=== PATIENT | female | born 1965 | race Hispanic/Latino ===

== ENCOUNTER 2019-01-25 20:30 | Emergency (ER) | payer BC ==
[2019-01-25] MEDS ORDERED: ASPIRIN 325 MG TABLET ONE (21:04)
[2019-01-25 21:34] LABS: BASOPHILS % (AUTO) 0.2 % (0.0-5.0); EOSINOPHILS % (AUTO) 0.1 % (0.0-8.0); HEMATOCRIT 40.5 % (36-48); MEAN CORPUSCULAR HEMOGLOBIN 31.1 pg (27.0-33.0); MEAN CORPUSCULAR HGB CONC 33.2 g/dL (32.0-36.0); MEAN CORPUSCULAR VOLUME 93.8 fL (79-99); MONOCYTES % (AUTO) 7.6 % (3.0-13.0); NEUTROPHILS % (AUTO) 82.1 % (40.0-77.0); PLATELET COUNT (AUTO) 247 K/uL (130-400); RED BLOOD CELL COUNT(AUTO) 4.32 MIL/uL (4.00-5.50); RED CELL DISTRIBUTION WIDTH 13.1 % (11.0-15.5); WHITE BLOOD COUNT (AUTO) 15.5 K/uL (4.8-10.8)
[2019-01-25 21:43] LABS: APPEARANCE,URINE SL CLOUDY (CLEAR); BILIRUBIN,URINE NEGATIVE (NEGATIVE); COLOR,URINE YELLOW (YELLOW); GLUCOSE, URINE (UA) NEGATIVE (NEGATIVE); KETONES,URINE 5 mg/dL (NEGATIVE); LEUKOCYTE ESTERASE ,URINE NEGATIVE (NEGATIVE); NITRATE,URINE NEGATIVE (NEGATIVE); OCCULT BLOOD,URINE NEGATIVE (NEGATIVE); PROTEIN,URINE NEGATIVE (NEGATIVE); UROBILINOGEN,URINE 0.2 mg/dL (0.2-1.0)
[2019-01-25 21:52] LABS: AMPHET/METH SCREEN,URINE NEGATIVE (NEGATIVE); BARBITURATE SCREEN, URINE NEGATIVE (NEGATIVE); BENZODIAZEPINES SCREEN,URINE NEGATIVE (NEGATIVE); CANNABINOID SCREEN,URINE NEGATIVE (NEGATIVE); COCAINE SCREEN,URINE NEGATIVE (NEGATIVE); OPIATE SCREEN,URINE NEGATIVE (NEGATIVE); PHENCYCLIDINE SCREEN,URINE NEGATIVE (NEGATIVE)
[2019-01-25 21:59] LABS: CREATININE 0.7 mg/dL (0.5-1.5); POTASSIUM 4.4 mmol/L (3.5-5.1)
[2019-01-25 22:11] LABS: B-TYPE NATRIURETIC PEPTIDE 34 pg/mL (0-100)
[2019-01-25 22:13] LABS: BILIRUBIN,TOTAL 0.3 mg/dL (0.2-1.0); THYROID STIMULATING HORMONE 0.78 uIU/mL (0.36-3.74); TOTAL PROTEIN, SERUM 6.4 g/dL (6.0-8.3)
[2019-01-25 22:19] LABS: BACTERIA,URINE Few /HPF (None Seen); RBC,URINE None Seen /HPF (0-1)
[2019-01-25 22:20] LABS: AMORPHOUS SEDIMENT,UR Few /LPF (None Seen)
[2019-01-25] MEDS ORDERED: AZITHROMYCIN 250 MG TABLET PO ONE (23:36)
== END 2019-01-26 | disposition home or self-care (01) ==
LOC: EDH 20:30
DX: J20.9 Acute bronchitis, unspecified (principal); I10 Essential (primary) hypertension; F41.9 Anxiety disorder, unspecified; M81.0 Age-related osteoporosis without current pathological fracture; Z90.710 Acquired absence of both cervix and uterus
CPT/HCPCS: 36415; 71045; 80053; 80305; 81001; 82550; 83880; 84443; 84484; 85025; 93005

== ENCOUNTER 2023-07-21 10:50 | Emergency (ER) | payer BC ==
[~2023-07-21] VITALS: Ht 157.5 cm; Wt 80.7 kg
[2023-07-21 12:03] LABS: BASOPHILS # (AUTO) 0.02 K/uL (0.00-0.20); BASOPHILS % (AUTO) 0.2 % (0.0-5.0); EOSINOPHILS # (AUTO) 0.04 K/uL (0.00-0.70); EOSINOPHILS % (AUTO) 0.4 % (0.0-8.0); HEMATOCRIT 39.4 % (36-48); IMMATURE GRANULOCYTE ABSOLUTE 0.02 K/uL (0-1); LYMPHOCYTES # (AUTO) 2.2 K/uL (1.0-4.8); LYMPHOCYTES % (AUTO) 23.5 % (21.0-51.0); MEAN CORPUSCULAR HEMOGLOBIN 30.5 pg (27.0-33.0); MEAN CORPUSCULAR HGB CONC 33.2 g/dL (32.0-36.0); MEAN CORPUSCULAR VOLUME 91.6 fL (79-99); MONOCYTES # (AUTO) 0.5 K/uL (0.1-1.0); MONOCYTES % (AUTO) 5.1 % (3.0-13.0); NEUTROPHILS # (AUTO) 6.5 K/uL (1.8-7.7); NEUTROPHILS % (AUTO) 70.6 % (40.0-77.0); PLATELET COUNT (AUTO) 259 K/uL (130-400); RED CELL DISTRIBUTION WIDTH 12.2 % (11.0-15.5); WHITE BLOOD COUNT (AUTO) 9.2 K/uL (4.8-10.8)
[2023-07-21 12:04] LABS: APPEARANCE,URINE CLEAR (CLEAR); BILIRUBIN,URINE NEGATIVE (NEGATIVE); COLOR,URINE DARK-YELLOW (YELLOW); GLUCOSE, URINE (UA) NEGATIVE (NEGATIVE); KETONES,URINE NEGATIVE (NEGATIVE); LEUKOCYTE ESTERASE ,URINE 500 Leu/uL (NEGATIVE); NITRATE,URINE NEGATIVE (NEGATIVE); PROTEIN,URINE NEGATIVE (NEGATIVE); UROBILINOGEN,URINE 0.2 mg/dL (0.2-1.0)
[2023-07-21 12:06] LABS: ADD UA MICROSCOPIC YES
[2023-07-21 12:09] LABS: BACTERIA,URINE RARE /HPF (None Seen); RBC,URINE 0-1 /HPF (0-1); SQUAMOUS EPITHELIAL CELL,UR RARE /HPF (0-2)
[2023-07-21 12:20] LABS: CREATININE 0.7 mg/dL (0.5-1.5); POTASSIUM 3.9 mmol/L (3.5-5.1)
[2023-07-21 12:24] LABS: ALBUMIN 3.8 g/dL (3.5-5.0); BILIRUBIN,TOTAL 0.5 mg/dL (0.2-1.0); TOTAL PROTEIN, SERUM 7.7 g/dL (6.0-8.3)
[2023-07-21] MEDS ORDERED: ONDANSETRON 4MG INJ IVP ONE (15:30)
[2023-07-21] MEDS ORDERED: CEFTRIAXONE 1G VIAL IVPB ONE (15:30)
[2023-07-21] MEDS ORDERED: 0.9%NACL 1000ML 1,000 ML IV ONE (15:30)
[2023-07-21] MEDS ORDERED: SULF1TAB42 PO (17:17)
[2023-07-21 17:30] VITALS: BP 114/68; PULSE 70; RESP 18; O2SAT 99
== END 2023-07-21 17:40 | disposition home or self-care (01) ==
LOC: EDH 10:50
DX: N39.0 Urinary tract infection, site not specified (principal); G43.909 Migraine, unspecified, not intractable, without status migrainosus; M79.7 Fibromyalgia; Z88.8 Allergy status to other drugs, medicaments and biological substances; Z90.710 Acquired absence of both cervix and uterus
CPT/HCPCS: 99284; 96365; 96375; 84484; 80053; 85025; 87088; 81001; 36415; 93005; J0696; J2405

== ENCOUNTER 2024-03-18 19:50 | Emergency (ER) | payer BC ==
[~2024-03-18] VITALS: Ht 162.6 cm; Wt 81.2 kg
[~2024-03-18 19:50] MED LIST: SULF1TAB42 PO
[2024-03-18 19:51] VITALS: BP 131/64; PULSE 76; RESP 16; O2SAT 99
[2024-03-18] MEDS: KETOROLAC 30MG VIAL (30MG/ML) IM STA (20:59)
[2024-03-18] MEDS: ORPHENADRINE CITRATE 30 MG/ML ML IM STA (20:59)
[2024-03-18] MEDS ORDERED: METH-662 PO (21:31)
== END 2024-03-18 21:51 | disposition home or self-care (01) ==
LOC: EDH 19:50
DX: S93.401A Sprain of unspecified ligament of right ankle, initial encounter (principal); M79.7 Fibromyalgia; G43.909 Migraine, unspecified, not intractable, without status migrainosus; Z90.710 Acquired absence of both cervix and uterus; W01.0XXA Fall on same level from slipping, tripping and stumbling without subsequent striking against object, initial encounter; Y93.01 Activity, walking, marching and hiking; Y92.89 Other specified places as the place of occurrence of the external cause; Y99.8 Other external cause status
CPT/HCPCS: 99284; 73610; 73522; 73562; 72100; 96372 ×2; J1885; J2360